=== PATIENT | female | born 2005 | race Caucasian/White ===

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

== ENCOUNTER 2023-02-27 07:39 | Inpatient (IN) | payer OTHER ==
[2023-02-27] VITALS (13 sets, daily range): BP systolic 96–132; BP diastolic 59–79
[~2023-02-27] VITALS: Ht 170.2 cm; Wt 91.8 kg
[2023-02-27] MEDS ORDERED: LR 1,000 ML IV SCH (09:10)
[2023-02-27] MEDS ORDERED: LIDOCAINE 1% MDV 20ML VIAL INFIL PRN (09:10)
[2023-02-27] MEDS ORDERED: LACTATED RINGER'S 1000 ML IV PRN (09:10)
[2023-02-27] MEDS ORDERED: TRANEXAMIC ACID INJection 1,000 MG in NS 100 ML IV PRN (09:10)
[2023-02-27] MEDS ORDERED: METHYLERGONOVINE MALEATE 0.2MG/ML 1ML VIAL IM PRN (09:10)
[2023-02-27] MEDS ORDERED: CARBOPROST TROMETHAMINE 250 MCG/ML AMP IM PRN (09:10)
[2023-02-27] MEDS ORDERED: IRON27TA2 PO (09:47)
[2023-02-27] MEDS ORDERED: PRENTAB9 PO (09:47)
[2023-02-27] MEDS ORDERED: CALC500C15 PO (09:47)
[2023-02-27 09:56] LABS: HEMATOCRIT 31.9 % (36.0-47.0); HEMOGLOBIN 9.8 g/dl (12.0-15.5); MEAN CORPUSCULAR HGB CONC 30.7 g/dl (32.0-36.5); MEAN CORPUSCULAR VOLUME 81.4 fl (80.0-96.0); PLATELET COUNT, AUTOMATED 342 10^3/uL (150-450); RED BLOOD COUNT 3.92 10^6/uL (4.00-5.40); WHITE BLOOD COUNT 9.7 10^3/uL (4.0-10.0)
[2023-02-27] MEDS ORDERED: miSOPROStol 50MCG 1/2 TABLET PO ONE (10:55)
[2023-02-27] MEDS: miSOPROStol 25MCG 1/4 TABLET PO SCH (22:14)
[2023-02-28] VITALS (16 sets, daily range): BP systolic 108–135; BP diastolic 56–85
[2023-02-28] MEDS: miSOPROStol 25MCG 1/4 TABLET PO SCH (03:19)
[2023-02-28] MEDS ORDERED: ACETAMINOPHEN 500 MG TAB PO ONE ×2 (04:00→09:20)
[2023-02-28] MEDS ORDERED: HOME MED LIST COMPLETE! XX SCH (12:15)
[2023-02-28] MEDS ORDERED: miSOPROStol 50MCG 1/2 TABLET PO ONE (13:10)
[2023-02-28] MEDS ORDERED: LR 1,000 ML IV SCH (20:30)
[2023-02-28] MEDS ORDERED: OXYTOCIN DRIP 30 UNITS in IV 1 EA IV SCH (20:30)
[2023-03-01] VITALS (10 sets, daily range): BP systolic 122–155; BP diastolic 62–89
[2023-03-01] MEDS ORDERED: ACETAMINOPHEN 500 MG TAB PO ONE (03:00)
[2023-03-01] MEDS ORDERED: EPIDURAL/PCA KEYS XX PRN (04:30)
[2023-03-01] MEDS ORDERED: LR 500 ML IV PRN (04:30)
[2023-03-01] MEDS ORDERED: diphenhydrAMINE 50MG/ML VIAL IV PRN (04:30)
[2023-03-01] MEDS ORDERED: NALOXONE INJ 0.4MG/1ML VIAL IV PRN (04:30)
[2023-03-01] MEDS ORDERED: ONDANSETRON 4MG 2ML VIAL IV PRN (04:30)
[2023-03-01] MEDS ORDERED: FENTANYL/ROPIVACAINE/NACL BAG 100 ML EPIDURAL SCH (04:30)
[2023-03-01] MEDS ORDERED: ePHEDrine SULFATE 25 MG/5 ML(5MG/ML) SYRINGE IVP PRN (04:30)
[2023-03-01] MEDS ORDERED: MOM 30ML SUSPENSION UDC PO PRN (06:20)
[2023-03-01] MEDS ORDERED: ACETAMINOPHEN 500 MG TAB PO PRN (06:20)
[2023-03-01] MEDS ORDERED: DIBUCAINE 1% OINTMENT 30GM TOP PRN (06:20)
[2023-03-01] MEDS ORDERED: DOCUSATE SODIUM 100MG CAPSULE PO PRN (06:20)
[2023-03-01] MEDS ORDERED: ANUSOL HC CREAM 30GM TOP PRN (06:20)
[2023-03-01] MEDS ORDERED: RHOGAM 300MCG (1500IU) INJ IM SCH (06:20)
[2023-03-01] MEDS ORDERED: PRENATAL VITAMINS CHEWABLE TABLET PO SCH (09:00)
[2023-03-01] MEDS: IBUPROFEN 800 MG TAB PO PRN ×2 (11:23→20:48)
[2023-03-02 06:00] VITALS: BP 130/82
[2023-03-02] MEDS: PRENATAL VITAMINS CHEWABLE TABLET PO SCH ×2 (09:00→09:39)
[2023-03-02 18:00] VITALS: BP 128/73
[2023-03-02] MEDS: IBUPROFEN 800 MG TAB PO PRN (20:47)
[2023-03-03 06:00] VITALS: BP 109/65
[2023-03-03] MEDS: PRENATAL VITAMINS CHEWABLE TABLET PO SCH (08:08)
[2023-03-03] MEDS ORDERED: MEASLES,MUMPS,RUBELLA VACCINE INJ (MMR-II) SC.IMMUN ONE (09:00)
== END 2023-03-03 11:36 | disposition home or self-care (01) | DRG 807 ==
LOC: M LDI 07:39 → M OBS 03-01 08:25
PROVIDERS: ADMIT Registered Nurse; ATTEND Obstetrics & Gynecology
PROC: 3E0P7GC Introduction of Other Therapeutic Substance into Female Reproductive, Via Natural or Artificial Opening (ICD-10-PCS; 2023-02-27)
PROC: 10E0XZZ Delivery of Products of Conception, External Approach (ICD-10-PCS; principal; 2023-03-01)
PROC: 0HQ9XZZ Repair Perineum Skin, External Approach (ICD-10-PCS; 2023-03-01)
DX: O48.0 Post-term pregnancy (principal); Z37.0 Single live birth; D64.9 Anemia, unspecified; O99.02 Anemia complicating childbirth; Z3A.41 41 weeks gestation of pregnancy; O69.81X0 Labor and delivery complicated by cord around neck, without compression, not applicable or unspecified; O70.0 First degree perineal laceration during delivery; O75.89 Other specified complications of labor and delivery